=== PATIENT | female | born 1930 | race African-American/Black ===

== ENCOUNTER 2017-04-13 18:55 | Inpatient (IN) | payer MEDICARE ==
[~2017-04-13] VITALS: Ht 167.6 cm; Wt 85.3 kg
[~2017-04-13 18:55] MED LIST: CLONIDINE PO; COLACE PO; DIOVAN; HYDROCHLOROTHIAZIDE PO; KLOR-CON; LEVPEN SQ; METOPROLOL PO; NORVASC PO; REGULAR INSULIN
[2017-04-13 19:54] LABS: BASOPHILS % 0.4 % (0.0-2.0); EOSINOPHILS % 0.1 % (0.0-5.0); HEMATOCRIT. 41.2 % (36.0-48.0); HEMOGLOBIN. 13.6 g/dL (12.0-16.0); LYMPHOCYTES % 9.7 % (20.0-50.0); MEAN CORPUSCULAR HEMOGLOBIN 28.4 pg (28.0-32.0); MEAN CORPUSCULAR VOLUME 86.2 fL (81.0-99.0); MEAN PLATELET VOLUME 8.4 fl (7.4-10.4); MONOCYTES % 3.6 % (2.0-8.0); NEUTROPHILS % 86.2 % (40.0-76.0); PLATELET 269 x1000/uL (130-400); RED BLOOD CELL COUNT 4.78 mill/uL (4.2-5.4); RED CELL DISTRIBUTION WIDTH 14.9 % (11.6-14.6)
[2017-04-13 20:00] LABS: PROTHROMBIN TIME 10.5 sec (9.4-11.6)
[2017-04-13 20:09] LABS: CARBON DIOXIDE 30 mEq/L (21-32); CHLORIDE 99 mEq/L (98-107); TROPONIN I < 0.02 ng/mL (0.00-0.04)
[2017-04-13 21:44] LABS: CLARITY URINE CLEAR (CLEAR); COLOR URINE YELLOW (YELLOW); GLUCOSE URINE NEGATIVE (NEGATIVE); KETONES URINE NEGATIVE (NEGATIVE); LEUKOCYTE ESTERASE URINE NEGATIVE (NEGATIVE); NITRITE URINE NEGATIVE (NEGATIVE); OCCULT BLOOD URINE NEGATIVE (NEGATIVE); PH URINE 7.5 (4.5-8.0); PROTEIN URINE NEGATIVE (NEGATIVE); SPECIFIC GRAVITY URINE 1.014 (1.005-1.030)
[2017-04-13] MEDS ORDERED: FAMOTIDINE 20MG/2ML VIAL IV ONE (22:45)
[2017-04-13] MEDS ORDERED: SODIUM CHLORIDE 0.9% 500 ML IV ONE (22:45)
[2017-04-13] MEDS ORDERED: ENOXAPARIN 40MG/0.4ML SYR SUBCUT SCH (23:45)
[2017-04-13] MEDS ORDERED: ONDANSETRON HCL 4MG/2ML VIAL IV PRN (23:45)
[2017-04-13] MEDS ORDERED: LORAZEPAM 2MG/ML CPJ IV PRN (23:45)
[2017-04-13] MEDS ORDERED: MORPHINE SULFATE 2 MG/ML CPJ (NOT FOR IM USE) IV PRN (23:45)
[2017-04-14] MEDS ORDERED: SODIUM CHLORIDE 0.9% 1,000 ML IV SCH (00:14)
[2017-04-14 00:56] LABS: AMYLASE 59 IU/L (25-115)
[2017-04-14 03:15] VITALS: BP 177/71
[2017-04-14] MEDS ORDERED: POTASSIUM CHLORIDE 20MEQ TABLET SR PO NR (05:00)
[2017-04-14 05:10] VITALS: BP 177/71
[2017-04-14] MEDS ORDERED: DEXTROSE 50% WATER 50ML SYRINGE IV PRN (05:15)
[2017-04-14] MEDS: CLONIDINE 0.1MG TABLET PO PRN (05:35)
[2017-04-14] MEDS ORDERED: VANCOMYCIN HCL 1000 MG/20 ML ORAL PO SCH (06:00)
[2017-04-14] MEDS: BLOOD SUGAR DIAGNOSTIC STRIP TEST SCH ×4 (06:06→21:12)
[2017-04-14] MEDS: INSULIN LISPRO 100 UNITS/ML SUBCUT SCH ×4 (06:27→21:15)
[2017-04-14 07:07] LABS: HEMATOCRIT. 39.5 % (36.0-48.0); MEAN CORPUSCULAR HEMOGLOBIN 28.5 pg (28.0-32.0); MEAN CORPUSCULAR VOLUME 86.4 fL (81.0-99.0); MEAN PLATELET VOLUME 8.6 fl (7.4-10.4); PLATELET 265 x1000/uL (130-400); RED BLOOD CELL COUNT 4.58 mill/uL (4.2-5.4); RED CELL DISTRIBUTION WIDTH 15.1 % (11.6-14.6)
[2017-04-14 07:35] LABS: CHLORIDE 99 mEq/L (98-107)
[2017-04-14 07:39] VITALS: BP 140/75
[2017-04-14] MEDS ORDERED: LEVOFLOXACIN 500MG PREMIX 100 ML IV SCH (08:00)
[2017-04-14 08:08] LABS: CARBON DIOXIDE 26 mEq/L (21-32); CREATINE KINASE 28 IU/L (26-192); CREATINE KINASE MB FRACTION < 0.5 ng/mL (0.5-3.6); PHOSPHORUS 2.6 mg/dL (2.5-4.9); TROPONIN I < 0.02 ng/mL (0.00-0.04)
[2017-04-14] MEDS: THIAMINE HCL 100MG TABLET PO SCH (08:37)
[2017-04-14] MEDS: HYDROCHLOROTHIAZIDE 25MG TABLET PO SCH (08:38)
[2017-04-14] MEDS: CLONIDINE 0.2MG TABLET PO SCH (08:38)
[2017-04-14] MEDS: AMLODIPINE 5MG TABLET PO SCH (08:38)
[2017-04-14] MEDS: ASPIRIN 81MG EC TABLET PO SCH (08:39)
[2017-04-14] MEDS: DOCUSATE SODIUM 100MG CAPSULE PO SCH (08:39)
[2017-04-14] MEDS: METOPROLOL TARTRATE 50MG TABLET PO SCH ×2 (08:39→20:41)
[2017-04-14] MEDS: ENOXAPARIN 30MG/0.3ML SYR SUBCUT SCH ×2 (08:40→20:42)
[2017-04-14] MEDS: VANCOMYCIN HCL 1000 MG/20 ML ORAL PO SCH ×3 (08:51→20:42)
[2017-04-14] MEDS ORDERED: HYDROCHLOROTHIAZIDE 25 MG PO SCH (09:00)
[2017-04-14] MEDS ORDERED: METRONIDAZOLE 500 MG PREMIX 100 ML IV ONE (09:00)
[2017-04-14] MEDS ORDERED: COLACE 100 MG PO SCH (09:00)
[2017-04-14] MEDS ORDERED: METOPROLOL 100 MG PO SCH (09:00)
[2017-04-14] MEDS ORDERED: CLONIDINE 0.2 MG PO SCH (09:00)
[2017-04-14] MEDS ORDERED: NORVASC 5 MG PO SCH (09:00)
[2017-04-14] MEDS ORDERED: KCL 20MEQ/100ML PREMIX 100 ML IV NR (10:00)
[2017-04-14] MEDS ORDERED: MAGNESIUM 2 G PREMIX 50 ML IV NR (10:00)
[2017-04-14 11:13] LABS: PLATELET ESTIMATE NORMAL
[2017-04-14 11:51] VITALS: BP 133/65
[2017-04-14] MEDS ORDERED: METRONIDAZOLE 500 MG PREMIX 100 ML IV SCH (12:00)
[2017-04-14] MEDS: METRONIDAZOLE 500MG TABLET PO SCH ×2 (12:35→20:41)
[2017-04-14] MEDS: LACTULOSE 20G/30ML UDC PO SCH ×2 (14:00→22:42)
[2017-04-14 16:00] VITALS: BP 145/69
[2017-04-14 19:38] LABS: CREATINE KINASE 61 IU/L (26-192); CREATINE KINASE MB FRACTION < 0.5 ng/mL (0.5-3.6); TROPONIN I < 0.02 ng/mL (0.00-0.04)
[2017-04-14 20:00] VITALS: BP 148/70
[2017-04-15] VITALS: BP 119/61
[2017-04-15 04:00] VITALS: BP 127/57
[2017-04-15] MEDS: METRONIDAZOLE 500MG TABLET PO SCH ×3 (04:16→20:08)
[2017-04-15] MEDS: VANCOMYCIN HCL 1000 MG/20 ML ORAL PO SCH ×4 (04:16→20:08)
[2017-04-15] MEDS: LACTULOSE 20G/30ML UDC PO SCH ×3 (06:00→21:23)
[2017-04-15 06:21] LABS: AMMONIA 41 uMol/L (<32)
[2017-04-15] MEDS: INSULIN LISPRO 100 UNITS/ML SUBCUT SCH ×4 (06:29→21:00)
[2017-04-15] MEDS: BLOOD SUGAR DIAGNOSTIC STRIP TEST SCH ×4 (06:29→21:18)
[2017-04-15 06:36] LABS: BASOPHILS % 0.4 % (0.0-2.0); EOSINOPHILS % 0.6 % (0.0-5.0); HEMATOCRIT. 36.8 % (36.0-48.0); HEMOGLOBIN. 12.1 g/dL (12.0-16.0); LYMPHOCYTES % 12.6 % (20.0-50.0); MEAN CORPUSCULAR HEMOGLOBIN 28.8 pg (28.0-32.0); MEAN CORPUSCULAR VOLUME 87.2 fL (81.0-99.0); MEAN PLATELET VOLUME 9.1 fl (7.4-10.4); MONOCYTES % 5.6 % (2.0-8.0); NEUTROPHILS % 80.8 % (40.0-76.0); PLATELET 221 x1000/uL (130-400); RED BLOOD CELL COUNT 4.22 mill/uL (4.2-5.4)
[2017-04-15 07:34] LABS: CARBON DIOXIDE 29 mEq/L (21-32); CHLORIDE 103 mEq/L (98-107); PHOSPHORUS 2.1 mg/dL (2.5-4.9)
[2017-04-15 08:00] VITALS: BP_SYST 124; BP_SYST 150; BP_DIAS 70; BP_DIAS 91
[2017-04-15] MEDS: LEVOFLOXACIN 500MG PREMIX 100 ML IV SCH (08:07)
[2017-04-15] MEDS ORDERED: POTASSIUM CHLORIDE 20MEQ TABLET SR PO SCH (09:00)
[2017-04-15] MEDS: METOPROLOL TARTRATE 50MG TABLET PO SCH ×2 (09:17→20:08)
[2017-04-15] MEDS: HYDROCHLOROTHIAZIDE 25MG TABLET PO SCH (09:17)
[2017-04-15] MEDS: THIAMINE HCL 100MG TABLET PO SCH (09:17)
[2017-04-15] MEDS: AMLODIPINE 5MG TABLET PO SCH (09:17)
[2017-04-15] MEDS: ASPIRIN 81MG EC TABLET PO SCH (09:18)
[2017-04-15] MEDS: DOCUSATE SODIUM 100MG CAPSULE PO SCH (09:18)
[2017-04-15] MEDS: ENOXAPARIN 30MG/0.3ML SYR SUBCUT SCH ×2 (09:20→20:08)
[2017-04-15] MEDS: CLONIDINE 0.2MG TABLET PO SCH (09:26)
[2017-04-15] MEDS: POTASSIUM CHLORIDE 20MEQ TABLET SR PO SCH ×2 (09:26→17:00)
[2017-04-15 12:00] VITALS: BP 126/70
[2017-04-15] MEDS ORDERED: POTASSIUM CHLORIDE 20MEQ TABLET SR PO NR (13:30)
[2017-04-15] MEDS ORDERED: MORPHINE SULFATE 2 MG/ML CPJ (NOT FOR IM USE) IV PRN (15:15)
[2017-04-15 16:00] VITALS: BP 118/71
[2017-04-15] MEDS ORDERED: HYDROCODONE/ACETAMINOPHEN 5/325MG TABLET PO PRN (16:30)
[2017-04-15] MEDS ORDERED: PANTOPRAZOLE SODIUM 40 MG/VIAL IV ONE (18:00)
[2017-04-15] MEDS: FAMOTIDINE 20MG/2ML VIAL IV SCH (18:34)
[2017-04-15] MEDS: SODIUM CHLORIDE 0.9% 1,000 ML IV SCH (18:34)
[2017-04-15 20:00] VITALS: BP 132/70
[2017-04-16] VITALS: BP 138/82
[2017-04-16] MEDS: VANCOMYCIN HCL 1000 MG/20 ML ORAL PO SCH ×4 (02:04→20:34)
[2017-04-16 04:00] VITALS: BP 138/62
[2017-04-16] MEDS: METRONIDAZOLE 500MG TABLET PO SCH ×3 (04:48→20:34)
[2017-04-16] MEDS: LACTULOSE 20G/30ML UDC PO SCH ×3 (05:01→22:29)
[2017-04-16 06:17] LABS: BASOPHILS % 0.5 % (0.0-2.0); EOSINOPHILS % 1.2 % (0.0-5.0); HEMATOCRIT. 38.2 % (36.0-48.0); HEMOGLOBIN. 12.8 g/dL (12.0-16.0); LYMPHOCYTES % 16.6 % (20.0-50.0); MEAN CORPUSCULAR VOLUME 86.8 fL (81.0-99.0); MEAN PLATELET VOLUME 8.7 fl (7.4-10.4); MONOCYTES % 4.9 % (2.0-8.0); NEUTROPHILS % 76.8 % (40.0-76.0); PLATELET 258 x1000/uL (130-400); RED CELL DISTRIBUTION WIDTH 15.2 % (11.6-14.6)
[2017-04-16] MEDS: BLOOD SUGAR DIAGNOSTIC STRIP TEST SCH ×4 (06:32→21:45)
[2017-04-16] MEDS: INSULIN LISPRO 100 UNITS/ML SUBCUT SCH ×4 (06:39→21:00)
[2017-04-16 07:26] LABS: CHLORIDE 105 mEq/L (98-107)
[2017-04-16 07:36] LABS: CARBON DIOXIDE 26 mEq/L (21-32)
[2017-04-16 08:00] VITALS: BP 145/77
[2017-04-16] MEDS ORDERED: PANTOPRAZOLE SODIUM 40 MG/VIAL IV SCH (09:00)
[2017-04-16] MEDS: DOCUSATE SODIUM 100MG CAPSULE PO SCH ×2 (09:00→09:18)
[2017-04-16] MEDS: LEVOFLOXACIN 500MG PREMIX 100 ML IV SCH (09:16)
[2017-04-16] MEDS: POTASSIUM CHLORIDE 20MEQ TABLET SR PO SCH ×2 (09:17→18:01)
[2017-04-16] MEDS: THIAMINE HCL 100MG TABLET PO SCH (09:18)
[2017-04-16] MEDS: METOPROLOL TARTRATE 50MG TABLET PO SCH ×2 (09:18→20:34)
[2017-04-16] MEDS: AMLODIPINE 5MG TABLET PO SCH (09:18)
[2017-04-16] MEDS: HYDROCHLOROTHIAZIDE 25MG TABLET PO SCH (09:18)
[2017-04-16] MEDS: ENOXAPARIN 30MG/0.3ML SYR SUBCUT SCH (09:19)
[2017-04-16] MEDS: CLONIDINE 0.2MG TABLET PO SCH (09:22)
[2017-04-16] MEDS: SODIUM CHLORIDE 0.9% 1,000 ML IV SCH ×2 (09:23→20:36)
[2017-04-16] MEDS ORDERED: POTASSIUM CHLORIDE 20MEQ TABLET SR PO NR (11:15)
[2017-04-16] MEDS ORDERED: SORBITOL 70% SOLN 30ML PO NR ×2 (11:25→18:45)
[2017-04-16 12:00] VITALS: BP 130/64
[2017-04-16 16:00] VITALS: BP 130/67
[2017-04-16] MEDS ORDERED: NA PHOS,M-B/NA PHOS,DI-BA ENEMA 118ML PR NR (17:23)
[2017-04-16] MEDS: FAMOTIDINE 20MG/2ML VIAL IV SCH (17:58)
[2017-04-16 20:00] VITALS: BP 169/80
[2017-04-16] MEDS ORDERED: KCL 20MEQ/100ML PREMIX 100 ML IV NR (20:00)
[2017-04-17] VITALS: BP 157/77
[2017-04-17] MEDS: VANCOMYCIN HCL 1000 MG/20 ML ORAL PO SCH ×2 (02:47→08:51)
[2017-04-17] MEDS: METRONIDAZOLE 500MG TABLET PO SCH (02:54)
[2017-04-17 04:00] VITALS: BP 156/80
[2017-04-17] MEDS: LACTULOSE 20G/30ML UDC PO SCH ×3 (06:08→21:32)
[2017-04-17] MEDS ORDERED: ACETAMINOPHEN 325MG TABLET PO PRN (06:15)
[2017-04-17] MEDS: BLOOD SUGAR DIAGNOSTIC STRIP TEST SCH ×4 (06:39→21:38)
[2017-04-17] MEDS: INSULIN LISPRO 100 UNITS/ML SUBCUT SCH ×4 (06:40→21:00)
[2017-04-17 06:53] LABS: BASOPHILS % 0.5 % (0.0-2.0); EOSINOPHILS % 0.8 % (0.0-5.0); HEMATOCRIT. 37.8 % (36.0-48.0); HEMOGLOBIN. 12.4 g/dL (12.0-16.0); LYMPHOCYTES % 20.6 % (20.0-50.0); MEAN CORPUSCULAR HEMOGLOBIN 28.4 pg (28.0-32.0); MEAN CORPUSCULAR VOLUME 86.5 fL (81.0-99.0); MONOCYTES % 4.6 % (2.0-8.0); NEUTROPHILS % 73.5 % (40.0-76.0); PLATELET 279 x1000/uL (130-400); RED BLOOD CELL COUNT 4.37 mill/uL (4.2-5.4)
[2017-04-17 07:05] LABS: AMMONIA 43 uMol/L (<32)
[2017-04-17 07:26] LABS: CARBON DIOXIDE 28 mEq/L (21-32); CHLORIDE 105 mEq/L (98-107)
[2017-04-17 08:00] VITALS: BP 163/75
[2017-04-17] MEDS: LEVOFLOXACIN 500MG PREMIX 100 ML IV SCH (08:52)
[2017-04-17] MEDS: DOCUSATE SODIUM 100MG CAPSULE PO SCH (08:55)
[2017-04-17] MEDS: HYDROCHLOROTHIAZIDE 25MG TABLET PO SCH (08:56)
[2017-04-17] MEDS: POTASSIUM CHLORIDE 20MEQ TABLET SR PO SCH ×2 (08:57→16:53)
[2017-04-17] MEDS: AMLODIPINE 5MG TABLET PO SCH (08:57)
[2017-04-17] MEDS: CLONIDINE 0.2MG TABLET PO SCH (08:58)
[2017-04-17] MEDS: THIAMINE HCL 100MG TABLET PO SCH (08:58)
[2017-04-17] MEDS: METOPROLOL TARTRATE 50MG TABLET PO SCH ×2 (08:59→20:14)
[2017-04-17] MEDS: ENOXAPARIN 40MG/0.4ML SYR SUBCUT SCH (09:04)
[2017-04-17 12:00] VITALS: BP 153/75
[2017-04-17] MEDS: PIPERACILLIN/TAZ 3.375G PREMIX 50 ML IV SCH ×2 (14:35→20:12)
[2017-04-17 16:00] VITALS: BP 117/75
[2017-04-17] MEDS: FAMOTIDINE 20MG/2ML VIAL IV SCH (17:31)
[2017-04-17 20:00] VITALS: BP 145/80
[2017-04-18] VITALS: BP 171/89
[2017-04-18] MEDS: PIPERACILLIN/TAZ 3.375G PREMIX 50 ML IV SCH ×4 (01:39→20:46)
[2017-04-18] MEDS: CLONIDINE 0.1MG TABLET PO PRN (01:39)
[2017-04-18 04:00] VITALS: BP 167/89
[2017-04-18] MEDS: LACTULOSE 20G/30ML UDC PO SCH ×3 (06:00→22:55)
[2017-04-18] MEDS: BLOOD SUGAR DIAGNOSTIC STRIP TEST SCH ×4 (06:17→20:47)
[2017-04-18] MEDS: INSULIN LISPRO 100 UNITS/ML SUBCUT SCH ×4 (06:26→20:56)
[2017-04-18 07:56] VITALS: BP 163/76
[2017-04-18] MEDS: POTASSIUM CHLORIDE 20MEQ TABLET SR PO SCH ×2 (08:28→16:52)
[2017-04-18] MEDS: AMLODIPINE 5MG TABLET PO SCH (08:28)
[2017-04-18] MEDS: METOPROLOL TARTRATE 50MG TABLET PO SCH ×2 (08:28→20:47)
[2017-04-18] MEDS: CLONIDINE 0.2MG TABLET PO SCH (08:28)
[2017-04-18] MEDS: THIAMINE HCL 100MG TABLET PO SCH (08:28)
[2017-04-18] MEDS: DOCUSATE SODIUM 100MG CAPSULE PO SCH (08:28)
[2017-04-18] MEDS: ENOXAPARIN 40MG/0.4ML SYR SUBCUT SCH (08:29)
[2017-04-18] MEDS ORDERED: SORBITOL 70% SOLN 30ML PO NR ×2 (09:15→16:00)
[2017-04-18 10:45] LABS: BASOPHILS % 0.3 % (0.0-2.0); EOSINOPHILS % 1.1 % (0.0-5.0); HEMATOCRIT. 34.8 % (36.0-48.0); HEMOGLOBIN. 11.5 g/dL (12.0-16.0); LYMPHOCYTES % 18.7 % (20.0-50.0); MEAN CORPUSCULAR HEMOGLOBIN 28.8 pg (28.0-32.0); MEAN CORPUSCULAR VOLUME 87.1 fL (81.0-99.0); MEAN PLATELET VOLUME 8.4 fl (7.4-10.4); MONOCYTES % 5.2 % (2.0-8.0); NEUTROPHILS % 74.7 % (40.0-76.0); PLATELET 247 x1000/uL (130-400)
[2017-04-18] MEDS ORDERED: NA PHOS,M-B/NA PHOS,DI-BA ENEMA 118ML PR NR (11:00)
[2017-04-18 11:27] LABS: CARBON DIOXIDE 26 mEq/L (21-32); CHLORIDE 104 mEq/L (98-107); PHOSPHORUS 2.8 mg/dL (2.5-4.9)
[2017-04-18] MEDS ORDERED: POTASSIUM CHLORIDE 20MEQ TABLET SR PO NR (11:30)
[2017-04-18 12:06] VITALS: BP 128/68
[2017-04-18] MEDS ORDERED: KCL 20MEQ/100ML PREMIX 100 ML IV NR (13:30)
[2017-04-18] MEDS ORDERED: MAGNESIUM 4 G PREMIX 100 ML IV NR (13:30)
[2017-04-18 16:00] VITALS: BP 149/89
[2017-04-18] MEDS: FAMOTIDINE 20MG/2ML VIAL IV SCH (17:34)
[2017-04-18 20:00] VITALS: BP 143/74
[2017-04-19] VITALS: BP 139/80
[2017-04-19] MEDS: PIPERACILLIN/TAZ 3.375G PREMIX 50 ML IV SCH ×4 (01:54→21:12)
[2017-04-19 04:00] VITALS: BP 160/80
[2017-04-19] MEDS: LACTULOSE 20G/30ML UDC PO SCH ×3 (05:59→21:12)
[2017-04-19] MEDS: BLOOD SUGAR DIAGNOSTIC STRIP TEST SCH ×4 (06:16→21:13)
[2017-04-19] MEDS: INSULIN LISPRO 100 UNITS/ML SUBCUT SCH ×4 (06:16→21:00)
[2017-04-19 07:17] LABS: PARTIAL THROMBOPLASTIN TIME 29.5 sec (23.4-31.0); PROTHROMBIN TIME 10.1 sec (9.4-11.6)
[2017-04-19 07:57] LABS: BASOPHILS % 0.3 % (0.0-2.0); EOSINOPHILS % 1.2 % (0.0-5.0); HEMATOCRIT. 38.3 % (36.0-48.0); HEMOGLOBIN. 12.6 g/dL (12.0-16.0); LYMPHOCYTES % 22.6 % (20.0-50.0); MEAN CORPUSCULAR HEMOGLOBIN 28.9 pg (28.0-32.0); MEAN CORPUSCULAR VOLUME 87.7 fL (81.0-99.0); MEAN PLATELET VOLUME 8.4 fl (7.4-10.4); MONOCYTES % 5.5 % (2.0-8.0); NEUTROPHILS % 70.4 % (40.0-76.0); PLATELET 314 x1000/uL (130-400); RED BLOOD CELL COUNT 4.37 mill/uL (4.2-5.4); RED CELL DISTRIBUTION WIDTH 15.2 % (11.6-14.6)
[2017-04-19 08:00] VITALS: BP 169/79
[2017-04-19 08:27] LABS: CHLORIDE 108 mEq/L (98-107)
[2017-04-19 08:33] LABS: CARBON DIOXIDE 27 mEq/L (21-32)
[2017-04-19] MEDS: DOCUSATE SODIUM 100MG CAPSULE PO SCH (08:38)
[2017-04-19] MEDS: THIAMINE HCL 100MG TABLET PO SCH (08:40)
[2017-04-19] MEDS: MAGNESIUM OXIDE 400MG TABLET PO SCH (08:40)
[2017-04-19] MEDS: POTASSIUM CHLORIDE 20MEQ TABLET SR PO SCH (08:40)
[2017-04-19] MEDS ORDERED: SORBITOL 70% SOLN 30ML PO SCH ×2 (09:00→16:00)
[2017-04-19] MEDS ORDERED: NA PHOS,M-B/NA PHOS,DI-BA ENEMA 118ML PR SCH ×2 (09:00→14:00)
[2017-04-19] MEDS: AMLODIPINE 5MG TABLET PO SCH (09:23)
[2017-04-19] MEDS: METOPROLOL TARTRATE 50MG TABLET PO SCH ×2 (09:23→21:12)
[2017-04-19] MEDS: CLONIDINE 0.1MG TABLET PO PRN (09:23)
[2017-04-19] MEDS: ENOXAPARIN 40MG/0.4ML SYR SUBCUT SCH (09:24)
[2017-04-19] MEDS ORDERED: POTASSIUM CHLORIDE 20MEQ/PACKET PO SCH (10:15)
[2017-04-19 12:00] VITALS: BP 133/63
[2017-04-19] MEDS: MULTIVITAMINS,THER W-MINERALS TABLET PO SCH (12:16)
[2017-04-19 16:00] VITALS: BP 174/71
[2017-04-19] MEDS: FAMOTIDINE 20MG/2ML VIAL IV SCH (18:35)
[2017-04-19 19:53] LABS: CLARITY URINE CLEAR (CLEAR); COLOR URINE DARK YELLOW (YELLOW); GLUCOSE URINE NEGATIVE (NEGATIVE); KETONES URINE NEGATIVE (NEGATIVE); LEUKOCYTE ESTERASE URINE NEGATIVE (NEGATIVE); NITRITE URINE NEGATIVE (NEGATIVE); OCCULT BLOOD URINE 3+ (NEGATIVE); PH URINE 5.5 (4.5-8.0); PROTEIN URINE 1+ (NEGATIVE)
[2017-04-19 19:56] VITALS: BP 144/57
[2017-04-20] VITALS: BP 138/60
[2017-04-20] MEDS: PIPERACILLIN/TAZ 3.375G PREMIX 50 ML IV SCH ×4 (02:16→20:57)
[2017-04-20 04:00] VITALS: BP 114/51
[2017-04-20 06:14] LABS: BASOPHILS % 0.4 % (0.0-2.0); HEMATOCRIT. 34.3 % (36.0-48.0); HEMOGLOBIN. 11.3 g/dL (12.0-16.0); MEAN CORPUSCULAR HEMOGLOBIN 28.8 pg (28.0-32.0); MEAN CORPUSCULAR VOLUME 87.7 fL (81.0-99.0); MEAN PLATELET VOLUME 8.5 fl (7.4-10.4); MONOCYTES % 5.4 % (2.0-8.0); NEUTROPHILS % 69.2 % (40.0-76.0); PLATELET 284 x1000/uL (130-400); RED BLOOD CELL COUNT 3.91 mill/uL (4.2-5.4); RED CELL DISTRIBUTION WIDTH 15.3 % (11.6-14.6)
[2017-04-20] MEDS: LACTULOSE 20G/30ML UDC PO SCH ×3 (06:52→20:49)
[2017-04-20] MEDS: INSULIN LISPRO 100 UNITS/ML SUBCUT SCH ×4 (06:53→20:56)
[2017-04-20] MEDS: BLOOD SUGAR DIAGNOSTIC STRIP TEST SCH ×4 (06:53→20:49)
[2017-04-20 07:48] LABS: CARBON DIOXIDE 28 mEq/L (21-32); CHLORIDE 111 mEq/L (98-107)
[2017-04-20 08:00] VITALS: BP 176/68
[2017-04-20] MEDS: METOPROLOL TARTRATE 50MG TABLET PO SCH ×2 (08:50→20:50)
[2017-04-20] MEDS: AMLODIPINE 5MG TABLET PO SCH (08:50)
[2017-04-20] MEDS: DOCUSATE SODIUM 100MG CAPSULE PO SCH (08:50)
[2017-04-20] MEDS: THIAMINE HCL 100MG TABLET PO SCH (08:50)
[2017-04-20] MEDS: MAGNESIUM OXIDE 400MG TABLET PO SCH (08:50)
[2017-04-20] MEDS: ENOXAPARIN 40MG/0.4ML SYR SUBCUT SCH (08:51)
[2017-04-20] MEDS: CLONIDINE 0.2MG TABLET PO SCH (08:51)
[2017-04-20] MEDS: MULTIVITAMINS,THER W-MINERALS TABLET PO SCH (08:52)
[2017-04-20] MEDS ORDERED: NA PHOS,M-B/NA PHOS,DI-BA ENEMA 118ML PR SCH (09:00)
[2017-04-20] MEDS ORDERED: POTASSIUM CHLORIDE 20MEQ TABLET SR PO NR (09:30)
[2017-04-20] MEDS ORDERED: SORBITOL 70% SOLN 30ML PO NR (09:45)
[2017-04-20 12:00] VITALS: BP 125/61
[2017-04-20] MEDS ORDERED: KCL 20MEQ/100ML PREMIX 100 ML IV SCH (15:15)
[2017-04-20 16:00] VITALS: BP 131/66
[2017-04-20] MEDS: FAMOTIDINE 20MG/2ML VIAL IV SCH (17:45)
[2017-04-20] MEDS ORDERED: KCL 20MEQ/100ML PREMIX 100 ML IV ONE (23:15)
[2017-04-20] MEDS: KCL 10MEQ/50ML PREMIX 50 ML IV SCH (23:57)
[2017-04-21] VITALS: BP 161/84
[2017-04-21] MEDS: PIPERACILLIN/TAZ 3.375G PREMIX 50 ML IV SCH ×4 (02:39→20:52)
[2017-04-21] MEDS: KCL 10MEQ/50ML PREMIX 50 ML IV SCH ×3 (03:17→06:10)
[2017-04-21 04:00] VITALS: BP 163/81
[2017-04-21] MEDS ORDERED: KCL 20MEQ/100ML PREMIX 100 ML IV ONE (04:00)
[2017-04-21] MEDS: LACTULOSE 20G/30ML UDC PO SCH ×2 (05:38→13:03)
[2017-04-21] MEDS: BLOOD SUGAR DIAGNOSTIC STRIP TEST SCH ×4 (06:00→21:00)
[2017-04-21] MEDS: INSULIN LISPRO 100 UNITS/ML SUBCUT SCH ×4 (06:17→22:23)
[2017-04-21 08:00] VITALS: BP 181/92
[2017-04-21] MEDS: METOPROLOL TARTRATE 50MG TABLET PO SCH ×2 (08:31→22:20)
[2017-04-21] MEDS: DOCUSATE SODIUM 100MG CAPSULE PO SCH (08:31)
[2017-04-21] MEDS: AMLODIPINE 5MG TABLET PO SCH (08:31)
[2017-04-21] MEDS: ENOXAPARIN 40MG/0.4ML SYR SUBCUT SCH (08:32)
[2017-04-21] MEDS: MAGNESIUM OXIDE 400MG TABLET PO SCH (08:32)
[2017-04-21] MEDS: MULTIVITAMINS,THER W-MINERALS TABLET PO SCH (08:32)
[2017-04-21] MEDS: THIAMINE HCL 100MG TABLET PO SCH (08:32)
[2017-04-21] MEDS: CLONIDINE 0.2MG TABLET PO SCH (08:32)
[2017-04-21 10:20] LABS: BASOPHILS % 0.5 % (0.0-2.0); EOSINOPHILS % 1.5 % (0.0-5.0); HEMATOCRIT. 37.3 % (36.0-48.0); HEMOGLOBIN. 12.3 g/dL (12.0-16.0); LYMPHOCYTES % 23.2 % (20.0-50.0); MEAN CORPUSCULAR VOLUME 87.9 fL (81.0-99.0); MEAN PLATELET VOLUME 8.1 fl (7.4-10.4); MONOCYTES % 4.3 % (2.0-8.0); NEUTROPHILS % 70.5 % (40.0-76.0); PLATELET 312 x1000/uL (130-400); RED BLOOD CELL COUNT 4.24 mill/uL (4.2-5.4); RED CELL DISTRIBUTION WIDTH 15.6 % (11.6-14.6)
[2017-04-21 10:25] LABS: CHLORIDE 109 mEq/L (98-107)
[2017-04-21 10:31] LABS: CARBON DIOXIDE 26 mEq/L (21-32)
[2017-04-21 12:00] VITALS: BP_SYST 100; BP_SYST 116; BP_DIAS 55; BP_DIAS 59
[2017-04-21] MEDS ORDERED: KCL 20MEQ/100ML PREMIX 100 ML IV SCH (12:30)
[2017-04-21] MEDS ORDERED: SIMETHICONE 40 MG/0.6 ML 30ML ONE (15:19)
[2017-04-21] MEDS ORDERED: IOHEXOL-300 100 ML BOTTLE ONE (15:19)
[2017-04-21] MEDS ORDERED: LIDOCAINE HCL 1% 20ML VIAL (Pyxis) INJ ONE (15:21)
[2017-04-21] MEDS ORDERED: PROPOFOL 200MG/20ML VIAL IV ONE (15:21)
[2017-04-21] MEDS ORDERED: SUCCINYLCHOLINE CHLORIDE 200MG/10ML VIAL IV ONE (15:21)
[2017-04-21] MEDS ORDERED: FENTANYL CITRATE/PF 50MCG/ML 2ML VIAL ONE (16:13)
[2017-04-21] MEDS ORDERED: ONDANSETRON HCL 4MG/2ML VIAL ONE (16:26)
[2017-04-21 20:00] VITALS: BP 156/79
[2017-04-22] VITALS: BP 127/53
[2017-04-22] MEDS: PIPERACILLIN/TAZ 3.375G PREMIX 50 ML IV SCH ×4 (01:57→20:15)
[2017-04-22 04:00] VITALS: BP 112/52
[2017-04-22] MEDS: BLOOD SUGAR DIAGNOSTIC STRIP TEST SCH ×4 (05:59→20:23)
[2017-04-22] MEDS: INSULIN LISPRO 100 UNITS/ML SUBCUT SCH ×4 (06:19→20:25)
[2017-04-22 06:20] LABS: BASOPHILS % 0.5 % (0.0-2.0); EOSINOPHILS % 1.5 % (0.0-5.0); HEMATOCRIT. 33.5 % (36.0-48.0); LYMPHOCYTES % 23.8 % (20.0-50.0); MEAN CORPUSCULAR HEMOGLOBIN 28.9 pg (28.0-32.0); MEAN CORPUSCULAR VOLUME 87.8 fL (81.0-99.0); MEAN PLATELET VOLUME 8.1 fl (7.4-10.4); MONOCYTES % 5.4 % (2.0-8.0); NEUTROPHILS % 68.8 % (40.0-76.0); PLATELET 296 x1000/uL (130-400); RED BLOOD CELL COUNT 3.82 mill/uL (4.2-5.4); RED CELL DISTRIBUTION WIDTH 15.3 % (11.6-14.6)
[2017-04-22 07:03] LABS: CARBON DIOXIDE 27 mEq/L (21-32); CHLORIDE 109 mEq/L (98-107)
[2017-04-22 07:07] LABS: PHOSPHORUS 3.2 mg/dL (2.5-4.9)
[2017-04-22 07:43] VITALS: BP 147/77
[2017-04-22] MEDS: MAGNESIUM OXIDE 400MG TABLET PO SCH (08:10)
[2017-04-22] MEDS: DOCUSATE SODIUM 100MG CAPSULE PO SCH (08:10)
[2017-04-22] MEDS: AMLODIPINE 5MG TABLET PO SCH (08:10)
[2017-04-22] MEDS: CLONIDINE 0.2MG TABLET PO SCH (08:10)
[2017-04-22] MEDS: METOPROLOL TARTRATE 50MG TABLET PO SCH ×2 (08:10→20:22)
[2017-04-22] MEDS: ENOXAPARIN 40MG/0.4ML SYR SUBCUT SCH (08:11)
[2017-04-22 12:00] VITALS: BP 125/87
[2017-04-22 16:11] VITALS: BP 130/66
[2017-04-22] MEDS: POTASSIUM CHLORIDE 20MEQ TABLET SR PO NR ×2 (18:58→19:01)
[2017-04-22 20:00] VITALS: BP 186/85
[2017-04-22] MEDS ORDERED: MAGNESIUM 2 G PREMIX 50 ML IV SCH (20:00)
[2017-04-23] VITALS: BP 146/63
[2017-04-23 04:00] VITALS: BP 158/70
[2017-04-23] MEDS: PIPERACILLIN/TAZ 3.375G PREMIX 50 ML IV SCH ×4 (04:08→19:50)
[2017-04-23] MEDS: INSULIN LISPRO 100 UNITS/ML SUBCUT SCH ×4 (06:40→22:13)
[2017-04-23] MEDS: BLOOD SUGAR DIAGNOSTIC STRIP TEST SCH ×4 (06:40→20:41)
[2017-04-23 07:00] LABS: BASOPHILS % 0.4 % (0.0-2.0); EOSINOPHILS % 1.2 % (0.0-5.0); HEMATOCRIT. 33.1 % (36.0-48.0); HEMOGLOBIN. 10.8 g/dL (12.0-16.0); LYMPHOCYTES % 19.9 % (20.0-50.0); MEAN CORPUSCULAR HEMOGLOBIN 28.8 pg (28.0-32.0); MEAN CORPUSCULAR VOLUME 88.2 fL (81.0-99.0); MEAN PLATELET VOLUME 8.2 fl (7.4-10.4); NEUTROPHILS % 74.5 % (40.0-76.0); PLATELET 299 x1000/uL (130-400); RED BLOOD CELL COUNT 3.76 mill/uL (4.2-5.4); RED CELL DISTRIBUTION WIDTH 15.2 % (11.6-14.6)
[2017-04-23 07:47] LABS: CHLORIDE 109 mEq/L (98-107)
[2017-04-23 08:00] VITALS: BP 146/79
[2017-04-23 08:04] LABS: CARBON DIOXIDE 28 mEq/L (21-32)
[2017-04-23] MEDS: MAGNESIUM OXIDE 400MG TABLET PO SCH (08:11)
[2017-04-23] MEDS: METOPROLOL TARTRATE 50MG TABLET PO SCH ×2 (08:11→22:12)
[2017-04-23] MEDS: DOCUSATE SODIUM 100MG CAPSULE PO SCH (08:12)
[2017-04-23] MEDS: AMLODIPINE 5MG TABLET PO SCH (08:12)
[2017-04-23] MEDS: ENOXAPARIN 40MG/0.4ML SYR SUBCUT SCH (08:12)
[2017-04-23] MEDS: CLONIDINE 0.2MG TABLET PO SCH (08:12)
[2017-04-23] MEDS ORDERED: AMLODIPINE 5MG TABLET PO SCH (09:30)
[2017-04-23] MEDS ORDERED: POTASSIUM CHLORIDE INJ 40 MEQ in DEXT 5% WATER 250 ML IV NR (10:00)
[2017-04-23 12:00] VITALS: BP 152/80
[2017-04-23 16:00] VITALS: BP 143/77
[2017-04-23 20:00] VITALS: BP 113/65
[2017-04-24] VITALS: BP 122/68
[2017-04-24] MEDS: PIPERACILLIN/TAZ 3.375G PREMIX 50 ML IV SCH ×4 (02:16→21:27)
[2017-04-24 04:00] VITALS: BP 158/76
[2017-04-24] MEDS: BLOOD SUGAR DIAGNOSTIC STRIP TEST SCH ×4 (05:31→20:11)
[2017-04-24] MEDS: INSULIN LISPRO 100 UNITS/ML SUBCUT SCH ×4 (05:32→20:17)
[2017-04-24 07:44] LABS: BASOPHILS % 0.4 % (0.0-2.0); HEMATOCRIT. 31.3 % (36.0-48.0); HEMOGLOBIN. 10.2 g/dL (12.0-16.0); LYMPHOCYTES % 27.7 % (20.0-50.0); MEAN CORPUSCULAR HEMOGLOBIN 28.7 pg (28.0-32.0); MEAN CORPUSCULAR VOLUME 87.9 fL (81.0-99.0); MEAN PLATELET VOLUME 8.3 fl (7.4-10.4); MONOCYTES % 4.3 % (2.0-8.0); NEUTROPHILS % 65.6 % (40.0-76.0); PLATELET 301 x1000/uL (130-400); RED BLOOD CELL COUNT 3.56 mill/uL (4.2-5.4); RED CELL DISTRIBUTION WIDTH 15.3 % (11.6-14.6)
[2017-04-24 07:46] VITALS: BP 149/76
[2017-04-24 08:03] LABS: CARBON DIOXIDE 29 mEq/L (21-32); CHLORIDE 108 mEq/L (98-107)
[2017-04-24] MEDS: ENOXAPARIN 40MG/0.4ML SYR SUBCUT SCH (08:04)
[2017-04-24 08:16] LABS: AMYLASE 46 IU/L (25-115)
[2017-04-24] MEDS: METOPROLOL TARTRATE 50MG TABLET PO SCH ×2 (09:38→20:16)
[2017-04-24] MEDS: DOCUSATE SODIUM 100MG CAPSULE PO SCH (09:38)
[2017-04-24] MEDS: AMLODIPINE 10MG TABLET PO SCH (09:38)
[2017-04-24] MEDS: CLONIDINE 0.2MG TABLET PO SCH (09:38)
[2017-04-24] MEDS: MAGNESIUM OXIDE 400MG TABLET PO SCH (09:38)
[2017-04-24 12:00] VITALS: BP 124/62
[2017-04-24 16:14] VITALS: BP 108/68
[2017-04-24 20:00] VITALS: BP 112/52
[2017-04-24] MEDS: DEXT 5%/0.45% NACL 1000ML 1,000 ML IV SCH (20:16)
[2017-04-24] MEDS ORDERED: POTASSIUM CHLORIDE 20MEQ TABLET SR PO NR (23:30)
[2017-04-24] MEDS ORDERED: METOCLOPRAMIDE HCL 10MG/2ML VIAL IV NR (23:30)
[2017-04-25 00:19] VITALS: BP 133/54
[2017-04-25] MEDS: PIPERACILLIN/TAZ 3.375G PREMIX 50 ML IV SCH ×4 (03:32→20:41)
[2017-04-25 04:00] VITALS: BP 108/64
[2017-04-25] MEDS: BLOOD SUGAR DIAGNOSTIC STRIP TEST SCH ×4 (06:20→20:36)
[2017-04-25] MEDS: METOCLOPRAMIDE HCL 10MG/2ML VIAL IV SCH ×3 (06:46→17:27)
[2017-04-25] MEDS: INSULIN LISPRO 100 UNITS/ML SUBCUT SCH ×4 (06:49→20:37)
[2017-04-25 08:00] VITALS: BP 150/63
[2017-04-25] MEDS: DEXT 5%/0.45% NACL 1000ML 1,000 ML IV SCH (09:40)
[2017-04-25] MEDS: MAGNESIUM OXIDE 400MG TABLET PO SCH (09:41)
[2017-04-25] MEDS: AMLODIPINE 10MG TABLET PO SCH (09:41)
[2017-04-25] MEDS: METOPROLOL TARTRATE 50MG TABLET PO SCH ×2 (09:41→20:41)
[2017-04-25] MEDS: CLONIDINE 0.2MG TABLET PO SCH (09:41)
[2017-04-25] MEDS: DOCUSATE SODIUM 100MG CAPSULE PO SCH (09:41)
[2017-04-25] MEDS: ENOXAPARIN 40MG/0.4ML SYR SUBCUT SCH (09:42)
[2017-04-25 12:00] VITALS: BP 99/47
[2017-04-25 12:47] LABS: BASOPHILS % 0.4 % (0.0-2.0); HEMATOCRIT. 23.5 % (36.0-48.0); HEMOGLOBIN. 7.5 g/dL (12.0-16.0); LYMPHOCYTES % 20.3 % (20.0-50.0); MEAN CORPUSCULAR HEMOGLOBIN 28.3 pg (28.0-32.0); MEAN CORPUSCULAR VOLUME 89.2 fL (81.0-99.0); MEAN PLATELET VOLUME 8.7 fl (7.4-10.4); MONOCYTES % 3.5 % (2.0-8.0); NEUTROPHILS % 74.8 % (40.0-76.0); PLATELET 308 x1000/uL (130-400); RED BLOOD CELL COUNT 2.63 mill/uL (4.2-5.4); RED CELL DISTRIBUTION WIDTH 15.5 % (11.6-14.6)
[2017-04-25 16:00] VITALS: BP 136/55
[2017-04-25 18:42] LABS: HEMATOCRIT 21.5 % (36.0-48.0); HEMOGLOBIN 7.1 g/dL (12.0-16.0)
[2017-04-25 20:00] VITALS: BP 115/55
[2017-04-25 22:02] LABS: CLARITY URINE CLOUDY (CLEAR); COLOR URINE YELLOW (YELLOW); GLUCOSE URINE NEGATIVE (NEGATIVE); KETONES URINE NEGATIVE (NEGATIVE); LEUKOCYTE ESTERASE URINE 1+ (NEGATIVE); NITRITE URINE NEGATIVE (NEGATIVE); OCCULT BLOOD URINE TRACE (NEGATIVE); PROTEIN URINE 1+ (NEGATIVE); UROBILINOGEN URINE 0.2 E.U./dL (0.2-1.0)
[2017-04-26] VITALS (16 sets, daily range): BP systolic 106–149; BP diastolic 46–70
[2017-04-26] MEDS: METOCLOPRAMIDE HCL 10MG/2ML VIAL IV SCH ×3 (00:06→12:35)
[2017-04-26] MEDS: PIPERACILLIN/TAZ 3.375G PREMIX 50 ML IV SCH ×4 (02:13→21:22)
[2017-04-26] MEDS ORDERED: DEXT 5%/0.45% NACL 1000ML 1,000 ML IV SCH (02:15)
[2017-04-26] MEDS: BLOOD SUGAR DIAGNOSTIC STRIP TEST SCH ×4 (06:39→21:00)
[2017-04-26] MEDS: INSULIN LISPRO 100 UNITS/ML SUBCUT SCH ×4 (06:46→21:00)
[2017-04-26] MEDS: CLONIDINE 0.2MG TABLET PO SCH (08:25)
[2017-04-26] MEDS: METOPROLOL TARTRATE 50MG TABLET PO SCH ×2 (08:26→21:25)
[2017-04-26] MEDS: DOCUSATE SODIUM 100MG CAPSULE PO SCH (08:26)
[2017-04-26] MEDS: AMLODIPINE 10MG TABLET PO SCH (08:26)
[2017-04-26] MEDS: MAGNESIUM OXIDE 400MG TABLET PO SCH (08:26)
[2017-04-26 09:33] LABS: BASOPHILS % 0.5 % (0.0-2.0); EOSINOPHILS % 2.5 % (0.0-5.0); HEMATOCRIT. 30.1 % (36.0-48.0); LYMPHOCYTES % 21.3 % (20.0-50.0); MEAN CORPUSCULAR HEMOGLOBIN 29.2 pg (28.0-32.0); MEAN CORPUSCULAR VOLUME 88.3 fL (81.0-99.0); MEAN PLATELET VOLUME 8.5 fl (7.4-10.4); MONOCYTES % 3.9 % (2.0-8.0); NEUTROPHILS % 71.8 % (40.0-76.0); PLATELET 287 x1000/uL (130-400); RED BLOOD CELL COUNT 3.41 mill/uL (4.2-5.4); RED CELL DISTRIBUTION WIDTH 15.7 % (11.6-14.6)
[2017-04-26 09:51] LABS: AMYLASE 38 IU/L (25-115); CARBON DIOXIDE 29 mEq/L (21-32); CHLORIDE 107 mEq/L (98-107)
[2017-04-26] MEDS ORDERED: KCL 20MEQ/100ML PREMIX 100 ML IV NR (15:00)
[2017-04-26] MEDS: PANTOPRAZOLE SODIUM 40 MG/VIAL IV SCH ×2 (15:25→21:21)
[2017-04-26] MEDS: LEVOFLOXACIN 500MG PREMIX 100 ML IV SCH (15:25)
[2017-04-27] VITALS: BP 140/80
[2017-04-27] MEDS: METOCLOPRAMIDE HCL 10MG/2ML VIAL IV SCH ×4 (00:34→16:47)
[2017-04-27] MEDS: DEXT 5%/0.9% NACL 1,000 ML IV SCH ×2 (00:35→18:47)
[2017-04-27] MEDS: PIPERACILLIN/TAZ 3.375G PREMIX 50 ML IV SCH ×4 (03:16→21:45)
[2017-04-27 04:00] VITALS: BP 146/63
[2017-04-27] MEDS: BLOOD SUGAR DIAGNOSTIC STRIP TEST SCH ×4 (06:16→21:00)
[2017-04-27] MEDS: INSULIN LISPRO 100 UNITS/ML SUBCUT SCH ×4 (06:17→21:00)
[2017-04-27 06:38] LABS: PARTIAL THROMBOPLASTIN TIME 25.8 sec (23.4-31.0); PROTHROMBIN TIME 10.7 sec (9.4-11.6)
[2017-04-27 06:53] LABS: BASOPHILS % 0.6 % (0.0-2.0); HEMATOCRIT. 28.4 % (36.0-48.0); HEMOGLOBIN. 9.5 g/dL (12.0-16.0); LYMPHOCYTES % 22.2 % (20.0-50.0); MEAN CORPUSCULAR HEMOGLOBIN 29.6 pg (28.0-32.0); MEAN CORPUSCULAR VOLUME 88.4 fL (81.0-99.0); MEAN PLATELET VOLUME 8.3 fl (7.4-10.4); MONOCYTES % 4.5 % (2.0-8.0); NEUTROPHILS % 70.7 % (40.0-76.0); PLATELET 309 x1000/uL (130-400); RED BLOOD CELL COUNT 3.21 mill/uL (4.2-5.4); RED CELL DISTRIBUTION WIDTH 15.8 % (11.6-14.6)
[2017-04-27 08:00] VITALS: BP 141/72
[2017-04-27 08:08] LABS: CARBON DIOXIDE 27 mEq/L (21-32); CHLORIDE 108 mEq/L (98-107)
[2017-04-27] MEDS: MAGNESIUM OXIDE 400MG TABLET PO SCH (08:45)
[2017-04-27] MEDS: AMLODIPINE 10MG TABLET PO SCH (08:45)
[2017-04-27] MEDS: PANTOPRAZOLE SODIUM 40 MG/VIAL IV SCH ×2 (08:45→21:45)
[2017-04-27] MEDS: METOPROLOL TARTRATE 50MG TABLET PO SCH ×2 (08:45→21:45)
[2017-04-27] MEDS: DOCUSATE SODIUM 100MG CAPSULE PO SCH (08:45)
[2017-04-27] MEDS: CLONIDINE 0.2MG TABLET PO SCH (08:45)
[2017-04-27] MEDS ORDERED: SODIUM CHLORIDE 0.9% 10ML VIAL ONE (09:25)
[2017-04-27 11:43] VITALS: BP 109/54
[2017-04-27] MEDS: LEVOFLOXACIN 500MG PREMIX 100 ML IV SCH (14:26)
[2017-04-27] MEDS ORDERED: MIDAZOLAM HCL 5 MG/5 ML VIAL ONE (15:53)
[2017-04-27] MEDS ORDERED: FENTANYL CITRATE/PF 50MCG/ML 2ML VIAL ONE (15:53)
[2017-04-27 15:58] VITALS: BP 138/65
[2017-04-27] MEDS ORDERED: FENTANYL CITRATE/PF 50MCG/ML 2ML VIAL IV PRN (17:13)
[2017-04-27] MEDS ORDERED: MIDAZOLAM HCL 5 MG/5 ML VIAL IV PRN (17:13)
[2017-04-27 20:01] VITALS: BP 150/60
[2017-04-28] VITALS: BP 148/68
[2017-04-28] MEDS: METOCLOPRAMIDE HCL 10MG/2ML VIAL IV SCH ×3 (00:37→12:24)
[2017-04-28] MEDS: PIPERACILLIN/TAZ 3.375G PREMIX 50 ML IV SCH ×2 (03:13→09:22)
[2017-04-28 04:00] VITALS: BP 150/77
[2017-04-28] MEDS: INSULIN LISPRO 100 UNITS/ML SUBCUT SCH ×2 (06:10→12:53)
[2017-04-28] MEDS: BLOOD SUGAR DIAGNOSTIC STRIP TEST SCH ×2 (06:10→12:24)
[2017-04-28 07:55] LABS: BASOPHILS % 0.2 % (0.0-2.0); EOSINOPHILS % 1.6 % (0.0-5.0); HEMATOCRIT. 31.5 % (36.0-48.0); HEMOGLOBIN. 10.3 g/dL (12.0-16.0); MEAN CORPUSCULAR HEMOGLOBIN 29.5 pg (28.0-32.0); MEAN CORPUSCULAR VOLUME 90.1 fL (81.0-99.0); MEAN PLATELET VOLUME 8.3 fl (7.4-10.4); MONOCYTES % 4.8 % (2.0-8.0); NEUTROPHILS % 75.4 % (40.0-76.0); PLATELET 329 x1000/uL (130-400); RED BLOOD CELL COUNT 3.49 mill/uL (4.2-5.4); RED CELL DISTRIBUTION WIDTH 15.7 % (11.6-14.6)
[2017-04-28 07:56] VITALS: BP 172/59
[2017-04-28 07:57] LABS: CARBON DIOXIDE 28 mEq/L (21-32); CHLORIDE 108 mEq/L (98-107)
[2017-04-28] MEDS: PANTOPRAZOLE SODIUM 40 MG/VIAL IV SCH (09:22)
[2017-04-28] MEDS: METOPROLOL TARTRATE 50MG TABLET PO SCH (09:22)
[2017-04-28] MEDS: MAGNESIUM OXIDE 400MG TABLET PO SCH (09:22)
[2017-04-28] MEDS: CLONIDINE 0.2MG TABLET PO SCH (09:23)
[2017-04-28] MEDS: AMLODIPINE 10MG TABLET PO SCH (09:23)
[2017-04-28] MEDS: DOCUSATE SODIUM 100MG CAPSULE PO SCH (09:23)
[2017-04-28 12:00] VITALS: BP 148/69
[2017-04-28] MEDS: DEXT 5%/0.9% NACL 1,000 ML IV SCH (12:27)
[2017-04-28 13:43] VITALS: BP 148/69
[2017-04-28] MEDS ORDERED: METRONIDAZOLE 500MG TABLET PO SCH (14:00)
[2017-04-28] MEDS: LEVOFLOXACIN 500MG PREMIX 100 ML IV SCH (15:00)
[2017-04-28 16:00] VITALS: BP 141/63
== END 2017-04-28 16:10 | disposition home health service (06) | DRG 871 ==
LOC: ER 19:22 → SUPCPDRO 23:31 → 8WST 04-14 00:16 → ENRESERV 04-14 00:30
PROVIDERS: ADMIT Internal Medicine Nephrology; ATTEND Internal Medicine Nephrology
PROC: 0FC98ZZ Extirpation of Matter from Common Bile Duct, Via Natural or Artificial Opening Endoscopic (ICD-10-PCS; 2017-04-21)
PROC: BF131ZZ Fluoroscopy of Gallbladder and Bile Ducts using Low Osmolar Contrast (ICD-10-PCS; 2017-04-21)
PROC: 0F798ZZ Dilation of Common Bile Duct, Via Natural or Artificial Opening Endoscopic (ICD-10-PCS; principal; 2017-04-21 12:30)
PROC: 30233N1 Transfusion of Nonautologous Red Blood Cells into Peripheral Vein, Percutaneous Approach (ICD-10-PCS; 2017-04-26)
PROC: 0DB68ZX Excision of Stomach, Via Natural or Artificial Opening Endoscopic, Diagnostic (ICD-10-PCS; 2017-04-27)
DX: A41.9 Sepsis, unspecified organism (principal); E43 Unspecified severe protein-calorie malnutrition; K80.63 Calculus of gallbladder and bile duct with acute cholecystitis with obstruction; K85.90 Acute pancreatitis without necrosis or infection, unspecified; E87.0 Hyperosmolality and hypernatremia; K76.0 Fatty (change of) liver, not elsewhere classified; I69.354 Hemiplegia and hemiparesis following cerebral infarction affecting left non-dominant side; D64.9 Anemia, unspecified; I10 Essential (primary) hypertension; E11.9 Type 2 diabetes mellitus without complications; E87.6 Hypokalemia; E83.42 Hypomagnesemia; K29.60 Other gastritis without bleeding; K44.9 Diaphragmatic hernia without obstruction or gangrene; R47.1 Dysarthria and anarthria; Z79.4 Long term (current) use of insulin; Z79.899 Other long term (current) drug therapy; Z74.01 Bed confinement status; Z68.30 Body mass index [BMI] 30.0-30.9, adult
CPT/HCPCS: 36415; 51702; 71010; 74000; 74176; 74181; 74328; 76705; 78227; 80048; 80053; 80076; 81001; 81003; 82140; 82150; 82248; 82270; 82550; 82553; 82962; 83605; 83690; 83735; 84100; 84132; 84145; 84484; 85014; 85018; 85025; 85610; 85730; 86850; 86900; 86920; 87040; 87086; 88305; 88312; 88313; 92610; 93005; 93970; 96374; 96375; 97161; 97166; 99285; A4216; A6261; A9537; C1726; C1769; C1893; C9113; J0330; J1650; J1815; J1956; J2060; J2250; J2270; J2405; J2543; J2704; J2765; J3010; J3370; J3475; J3480; J3490; J7030; J7040; J7042; J7050; J7060; P9016; Q9967; A4315